=== PATIENT | female | born 1990 | race Caucasian/White ===

== ENCOUNTER 2018-02-02 09:49 | Day surgery (SDC) | payer OTHER ==
[2018-02-02] MEDS ORDERED: BUPIVACAINE 0.25%/EPI (SDV) 30 ML INJ (12:21)
[2018-02-02] MEDS ORDERED: POLYMYXIN/BACITRACIN 1L IRRIG (12:21)
[2018-02-02] MEDS ORDERED: TRIAMCINOLONE ACET 40 MG/ML INJ (12:21)
[2018-02-02] MEDS ORDERED: LIDOCAINE 2% (SDV) 5 ML INJ (12:40)
[2018-02-02] MEDS ORDERED: GLYCOPYRROLATE 0.4 MG INJ (12:40)
[2018-02-02] MEDS ORDERED: PROPOFOL 20 ML (12:40)
[2018-02-02] MEDS ORDERED: ROCURONIUM 50 MG INJ (12:40)
[2018-02-02] MEDS ORDERED: SUCCINYLCHOLINE CHLORIDE 100 MG/5 ML SYG IV (12:40)
[2018-02-02] MEDS ORDERED: NEOSTIGMINE 3 MG/3 ML SYRINGE (12:40)
[2018-02-02] MEDS ORDERED: MEPERIDINE 100 MG INJ (12:45)
[2018-02-02] MEDS ORDERED: ONDANSETRON 4 MG INJ ×2 (12:57→15:07)
[2018-02-02] MEDS ORDERED: METOCLOPRAMIDE 10 MG INJ (12:57)
[2018-02-02] MEDS: BUPIVACAINE 0.25%/EPI (SDV) 30 ML INJ INJ (13:02)
[2018-02-02] MEDS: TRIAMCINOLONE ACET 40 MG/ML INJ INJ (13:03)
[2018-02-02] MEDS ORDERED: DEXAMETHASONE 4 MG/ML 1 ML INJ ×2 (13:05→14:37)
[2018-02-02] MEDS: POLYMYXIN/BACITRACIN 1L IRRIG IRR (13:05)
[2018-02-02] MEDS ORDERED: MEPERIDINE 25 MG INJ IV (13:30)
[2018-02-02] MEDS ORDERED: FENTAnyl 50 MCG/ML VIAL IV (13:30)
[2018-02-02] MEDS ORDERED: METOCLOPRAMIDE 10 MG INJ IV (13:30)
[2018-02-02] MEDS ORDERED: MIDAZOLAM 1 MG/ML 2 ML INJ IV (13:30)
[2018-02-02] MEDS ORDERED: LABETALOL HCL 20MG INJ IV (13:30)
[2018-02-02] MEDS ORDERED: hydrALAzine 20 MG INJ IV (13:30)
[2018-02-02] MEDS ORDERED: DIPHENHYDRAMINE 50 MG INJ IV (13:30)
[2018-02-02] MEDS ORDERED: EPHEDrine SULFATE 50 MG/5 ML SYG IV (13:30)
[2018-02-02] MEDS ORDERED: PROPOFOL 100 ML (14:07)
[2018-02-02] MEDS: ONDANSETRON 4 MG INJ IV (14:15)
[2018-02-02] MEDS: FENTAnyl 50 MCG/ML VIAL IV ×2 (14:16→15:04)
== END 2018-02-02 16:27 | disposition home or self-care (01) ==
LOC: SDS 09:49
DX: J35.01 Chronic tonsillitis (principal)
CPT/HCPCS: 42826; 88304